=== PATIENT | male | born 1950 | race Caucasian/White ===

== ENCOUNTER 2017-11-03 10:26 | Emergency (ER) | payer OTHER ==
[~2017-11-03] VITALS: Ht 165.1 cm; Wt 79.4 kg
[2017-11-03] MEDS ORDERED: NORVASC2.5 M1 (10:31)
== END 2017-11-03 13:24 | disposition home or self-care (01) ==
LOC: ER 10:26
DX: M54.5 Low back pain (principal)

== ENCOUNTER 2019-11-14 13:57 | Outpatient (CLI) | payer OTHER ==
[~2019-11-14 13:57] MED LIST: NORVASC2.5 M1
== END 2019-11-14 14:03 | disposition home or self-care (01) ==
LOC: SONOGRAMA 13:57
DX: M12.861 Other specific arthropathies, not elsewhere classified, right knee (principal); M12.862 Other specific arthropathies, not elsewhere classified, left knee

== ENCOUNTER 2019-11-22 07:39 | Outpatient (CLI) | payer OTHER | END 2019-11-22 08:00 | disposition home or self-care (01) | LOC: NUCLEAR 07:39 | DX: N40.0 Benign prostatic hyperplasia without lower urinary tract symptoms (principal); M19.90 Unspecified osteoarthritis, unspecified site | CPT/HCPCS: 78306; A9503 ==